=== PATIENT | female | born 1945 | race Caucasian/White ===

== ENCOUNTER → 2022-05-03 | Outpatient (CLI) | payer MEDICARE, SELFPAY | END | disposition home or self-care (01) | PROVIDERS: PCP Nurse Practitioner Family; Referring Provider Nurse Practitioner Family; Visit Provider Nurse Practitioner Family | DX: N39.0 Urinary tract infection, site not specified (principal) | CPT/HCPCS: 87077; 87086; 87088; 87186 ==

== ENCOUNTER 2023-12-17 21:32 | Emergency (ER) | payer MEDICARE, SELFPAY ==
[2023-12-17 21:33] VITALS: BP 182/91; PULSE 65; RESP 16; TEMP 36.4; O2SAT 97; BMI 22.6
--- NOTE | 2023-12-17 21:57 | EX.ED.UPPERE ---
HPI History of Present Illness HPI Narrative: Patient presents with left wrist injury that occurred today. Patient states that she was at a soccer game when the ball came towards her. Patient states she put her hand up to block the ball. Patient states the ball hit her in the wrist and hand area. Patient noted increased swelling since the injury. Patient describes her pain as dull and sore. Patient states it is worse with certain movements. Patient states it is better with rest. Patient denies any paresthesias or weakness. Patient denies any other injuries. Chief Complaint: Upper Extremity Injury Informant: patient Occured/Mechanism Mechanism/Context: Yes direct blow Onset/Context/Timing Onset: Today Context: Sudden Onset Timing: Continuous Quality of Pain: Dull Location: Left wrist Worsened by: Certain movements Relieved by: Rest Associated Symptoms Associated Symptoms: Negative for Parasthesia or Weakness PFSH PFSH Medical History no medical history no medical history Allergy/AdvReac Type Severity Reaction Status Date / Time No Known Allergies Allergy Verified 12/17/23 21:33 Surgical History no surgical history no surgical history ROS ROS ED Constitutional Constitutional ED: Denies chills or fever(s) Eyes Eyes: Denies blurry vision or change in vision ENT ENT ED: Denies rhinorrhea or sore throat Cardiovascular Cardiovascular: Denies chest pain or palpitations Respiratory/Chest Respiratory/Chest: Denies cough or dyspnea Gastrointestinal Gastrointestinal: Denies nausea or vomiting Genitourinary Genitourinary ED: Denies dysuria or hematuria Musculoskeletal Musculoskeletal: Denies back pain or neck pain Integumentary Denies abscess or rash Neurologic Neurologic: Denies headache(s) or weakness Allergic/Immunologic Allergic/Immunologic ED: Denies mouth swelling or urticaria EXAM Physical Exam Const Vital Signs: 12/17/23 21:33 Temperature 97.5 F L Temperature Source Temporal Pulse Rate 65 Respiratory Rate 16 Blood Pressure 182/91 H Blood Pressure Mean 121 Pulse Ox 97 Oxygen Delivery Method Room Air Positive well nourished and well developed General Appearance ED: well developed and NAD HEENT Reports moist mucous membranes Neck full ROM and supple Extremity Extremity Narrative: There is tenderness and edema over the left distal radius and left wrist. There is no obvious deformity noted. Range of motion was limited in all motions of the left wrist secondary to pain. There is some tenderness over the anatomic snuffbox. Sensation was intact to light touch in the radial, median, and ulnar areas. Strength is 5/5 in the radial, median, and ulnar areas. There is good radial pulse palpated. Capillary refills less than 2 seconds in all digits. General Extremety ED: Yes edema General Extremity: edema Neuro oriented x3, CN's II-XII intact bilaterally, moves all extremities, no focal motor deficits and no sensory deficits noted Sensorium / Orientation: alert Motor Exam: strength 5/5 throughout Psych mental status grossly normal MDM MDM MDM Narrative Medical decision making narrative: Differential diagnosis include sprain, contusion, and fracture. X-rays of the left wrist will be obtained to assess for fracture. Radiography Diagnostic Testing: X-rays of the left wrist were obtained. There are 4 views. On my independent interpretation, there is a nondisplaced fracture of the distal radius. There is no angulation. There is no fracture of the scaphoid bone. Radiologist also interpreted the x-rays and agrees. Treatment and Re-Evaluation Narrative: Patient was advised of her findings. Patient was placed in a well-padded custom made short arm AP splint using 3 inch Ortho-Glass. Patient tolerated the procedure well. Neurovascular exam was intact before and after the splint placement. Patient was instructed to ice and elevate the left wrist. Patient was instructed to follow-up with her primary care physician in 5 to 7 days. Patient was also given a referral for orthopedics. Patient understood and was agreeable with the plan. All questions were answered. Discharge Plan Triage Chief Complaint: Upper Extremity Injury ED Provider: Kt Burnham Dx/Rx/DC Orders Clinical Impression: Distal radius fracture, left, Elevated blood pressure reading without diagnosis of hypertension Instructions: ED Fracture, Upper Extremity Primary Care Provider: Elva Dumont Referrals: Elva Dumont MD [Primary Care Provider] - 5-7 Days Salinas Mensah DO [Med Staff - Active Staff] - 3-5 Days Estrada Uribe MD [Med Staff - Active Staff] - 3-5 Days Print Language: E[place] Disposition Disposition: Home, Self Care
--- NOTE | 2023-12-17 22:27 | RAD_ITS ---
STUDY: X-RAY - LEFT WRIST REASON FOR EXAM: Female, 78 years old. injury/pain TECHNIQUE: 4 view(s) of the wrist were obtained. COMPARISON: None. FINDINGS: There is nondisplaced fracture through the distal radial metaphysis, possibly with extension into the articular surface. No significant angulation. No dislocations. Severe diffuse demineralization. Normal radiocarpal articulation. Normal distal radioulnar articulation. Normal carpal bones. Normal carpal articulations. Normal carpometacarpal articulation of the thumb. Normal second through fifth carpometacarpal articulations. Normal visualized metacarpal bones. Diffuse soft tissue swelling. RAD/Wrist min 3 Views IMPRESSION: Nondisplaced nonangulated fracture through the distal radial metaphysis. Electronically Signed: Ray Norwood MD at 22:57 EDT ,
[2023-12-17 23:46] VITALS: BP 172/70; PULSE 67; RESP 18; TEMP 36.4; O2SAT 98
== END 2023-12-17 23:53 | disposition home or self-care (01) ==
PROVIDERS: Emergency Provider Emergency Medicine; PCP Family Medicine; Visit Provider Emergency Medicine
DX: S52.502A Unspecified fracture of the lower end of left radius, initial encounter for closed fracture (principal); R03.0 Elevated blood-pressure reading, without diagnosis of hypertension; W21.02XA Struck by soccer ball, initial encounter; Y93.66 Activity, soccer; Y92.89 Other specified places as the place of occurrence of the external cause
CPT/HCPCS: 29125; 73110; 99282

== ENCOUNTER → 2024-09-21 | Outpatient (CLI) | payer MEDICARE, SELFPAY ==
[2024-09-21 12:24] LABS: Absolute Lymphocyte Count 0.99 X10^3/uL (0.83-4.51); Absolute Neutrophil Count 2.3 X10^3/uL (2.0-7.7); Basophil# 0.03 X10^3/uL; Basophil% 0.8 % (0-1); Eosinophil# 0.23 X10^3/uL; Eosinophils% 5.8 % (0-5); Hemoglobin 12.8 g/dL (12.0-15.0); Lymphocyte # 0.99 X10^3/ul (0.83-4.51); Mean Corpuscular Hgb 30.4 pg (27.0-32.0); Monocyte# 0.43 X10^3/uL; Monocyte% 10.9 % (0-10); NRBC Flagged by Analyzer 0 % (0-5); Neutrophil # 2.26 X10^3/uL (2.7-7.7); Platelet Count 290 K/mm3 (150-450); RBC Distribution Width CV 14.1 % (11.6-14.6); RBC Distribution Width SD 49.1 fl (35.1-43.9); Red Blood Count 4.21 M/mm3 (4.2-5.4)
--- OUTSIDE RECORDS SUMMARY | 2024-09-21 21:21 | XMS RPT_ITS | CCD ---
Author Organization [facility] Care Team Providers Care General Practice Name Role Phone ELVA AUSTIN Attending Unavailable ELVA AUSTIN Primary Care Unavailable ELVA AUSTIN Admitting Unavailable Kt Burnham Attending Unavailable Tim, Elva Primary Care Unavailable Tim, Elva Referring Unavailable Tu Rodriguez Attending Unavailable Tim, Chalon Primary Care Unavailable Ramy Alexander Attending Unavailable Tim, Chalon Primary Care Unavailable Tim, Magenon Referring Unavailable Tu Rodriguez Attending Unavailable Tim, Chalon Primary Care Unavailable Tim, Chalon Primary Care Unavailable Catherine, Ramy Attending Unavailable Tim, Magenon Referring Unavailable Tim, Chalon Primary Care Unavailable Mollsondra, Tu Attending Unavailable Problems Problem Classification Problem Date Documented Da te Episodic/Chronic Fracture of upper limb (1 source) Unspecified fracture of the lower end of left radius, initial encounter for closed fracture; Translations: [Unspecified fracture of the lower end of left radius, initial encounter for closed fracture] Onset: 01-27-2024 Episodic Results Test Name Value Interpretation Reference Range Facil ity Orthopedic Visit Reporton Orthopedic Visit Report [facility] [address] [place] [address] OFFICE VISIT Date of Service: 03/30/24 MR#: [id number] Acct: [id number] Name: ESPERANZA BURTON Rep #: [id number] : 1945 Provider: Dr. Tu marin MD Age/Sex: 78/F Location: [facility] Status: Signed Intake Vital Signs 12/17/23 21:33 Height 5 ft 8 in Weight: 149 lb BMI 22.6 BP 182/91 H Respiration 16 Pulse 65 Temp 97.5 F L Temp Source Temporal Pulse Oximetry (%) 97 Intake Visit Reasons: LEFT WRIST Is patient in pain?: No Allergies No Known Allergies Allergy (Verified 03/30/24 07:57) Medications ???Medication ???Instructions ???Recorded ???Confirmed ???Type aspirin 81 mg capsule 81 mg PO QDAY 12/23/23 03/30/24 History multivitamin 1 tab PO QAM 12/23/23 03/30/24 History Have you fallen in the past year?: Yes PFSH Social History household members: spouse Smoking Status: Never smoker alcohol intake: never HPI LEFT WRIST Details: This documentation accurately reflects the service provided and the decisions made by me, Dr. Tu Rodriguez MD 03/30/24 0748. Part of today???s visit was documented by [ ], acting as scribe. ESPERANZA BURTON is a 78 year old F here today for 3 months FU L DRF non op mgt. well. about 90 percent there. some mild stiffness. was building a porch recently. Coding Level of Care Code Off vis,est,level 3 Diagnoses Distal radius fracture, left S52.502A Assessment and Plan Assessment and Plan (1) Distal radius fracture, left: Status: Inactive Plan: ESPERANZA BURTON is a 78 year old F here today for 3 months FU L DRF non op mgt. Doing well. Keep going with stretching. AAT and FU PRN. Clinical Quality Measures Falls Risk Screening/Assistive Devices Have you fallen in the past year?: Yes Ortho Exam General General: Yes no acute distress Neurologic: Yes alert and Yes oriented x3 Psychologic: Yes reasonable and appropriate Right Wrist/Hand Skin/Wound: No Ecchymosis Left Wrist/Hand Skin/Wound: Yes CDI, No Ecchymosis, Yes nail intact, Yes capillary refill normal and No erythema Left Wrist: No TTP Fracture site Motor: EPL: 5, FDP-2: 5, 1st Dorsal Interosseous: 5 and APB: 5 Sensation: Radial: I, Ulnar: I and Median: I WRIST: ext 35, flex 20. full sup/pron. no pain at wrist. good radial pulse 03/30/24 0802 Date Tu Rodriguez MD Cosign Signature: Date (if applicable) CC: Normal [facility] Orthopedic Visit Reporton Orthopedic Visit Report [facility] [address] [place] [address] [address] [place] [address] OFFICE VISIT Date of Service: 01/27/24 MR#: [id number] Acct: [id number] Name: ESPERANZA BURTON Rep #: [id number] : 1945 Provider: Dr. Tu marin MD Age/Sex: 78/F Location: [facility] Status: Signed Intake Vital Signs 12/17/23 21:33 Height 5 ft 8 in Weight: 149 lb BMI 22.6 BP 182/91 H Respiration 16 Pulse 65 Temp 97.5 F L Temp Source Temporal Pulse Oximetry (%) 97 Intake Visit Reasons: LEFT WRIST Accompanied by: Is patient in pain?: No Allergies No Known Allergies Allergy (Verified 01/27/24 08:45) Medications ???Medication ???Instructions ???Recorded ???Confirmed ???Type aspirin 81 mg capsule 81 mg PO QDAY 12/23/23 01/27/24 History multivitamin 1 tab PO QAM 12/23/23 01/27/24 History Have you fallen in the past year?: No PFSH Social History household members: spouse Smoking Status: Never smoker alcohol intake: never HPI LEFT WRIST Details: This documentation accurately reflects the service provided and the decisions made by me, Dr. Tu Rodriguez MD 01/27/24 0843. Part of today???s visit was documented by [ ], acting as scribe. ESPERANZA BURTON is a 78 year old F here today for 6 weeks FU left distal radius fracture, non op mgt. doing well. Some mild soreness and stiffness. Supplemental Info X-rays 3 views of the left wrist obtained show good fracture healing and alignment. Coding Level of Care Code Off vis,est,level 3 Diagnoses Distal radius fracture, left S52.502A Assessment and Plan Assessment and Plan (1) Distal radius fracture, left: Status: Inactive Plan: ESPERANZA BURTON is a 78 year old F here today for 6 weeks FU left distal radius fracture, non op mgt. patient doing well discontinue the cast today. Recommend home-based exercises gave a handout for that. The patient declined physical therapy. Would like to see the patient back in 2 months time to check the range of motion they understood no further questions or concerns. Orders: Orders Wrist min 3 Views Today S52.502A - Unspecified fracture of the lower end of left radius, initial encounter for closed fracture Clinical Quality Measures Falls Risk Screening/Assistive Devices Have you fallen in the past year?: No Ortho Exam General General: Yes no acute distress Neurologic: Yes alert and Yes oriented x3 Psychologic: Yes reasonable and appropriate Right Wrist/Hand Skin/Wound: No Ecchymosis Left Wrist/Hand Skin/Wound: Yes CDI, No Ecchymosis, Yes nail intact, Yes capillary refill normal and No erythema Left Wrist: Yes TTP Fracture site Motor: EPL: 4, FDP-2: 4, 1st Dorsal Interosseous: 4 and APB: 4 Sensation: Radial: I, Ulnar: I and Median: I WRIST: ext 20, flex 15. full sup/pron. mild pain at wrist. good radial pulse 01/27/24 0922 Date [facility]: Date (if applicable) CC: Normal [facility] Wrist min 3 Viewson 01-27-20 24 Wrist min 3 Views [facility] [address] [place] [address] Wrist min 3 Views MR#: [id number] Acct: [id number] Name: ESPERANZA BURTON Rep #: [id number] : 1945 F 78 From: Tal Carlos MD PCP: Dr. Elva Austin MD Status: DEP AMB Study: Wrist min 3 Views Date of Exam: 01/27/24 Exam# [id number] Ordering Dr: uT Rodriguez MD [id number] STUDY: X-RAY - LEFT WRIST REASON FOR EXAM: Female, 78 years old. Known fracture TECHNIQUE: 3 view(s) of the wrist were obtained. COMPARISON: 12/23/2023 FINDINGS: The bones are demineralized. There is near complete healing of a previously described fracture in the distal left radius as there are still subtle fracture lucency noted on the oblique and lateral films. Alignment at the fracture site is anatomic. Follow-up recommended to assure complete osseous union. No acute fracture or suspicious osseous lesion. 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 RAD/Wrist min 3 Views IMPRESSION: Near complete healing of a previously noted fracture in the distal metaphysis of the radius. Alignment is anatomic there is still subtle evidence of cortical irregularity at the fracture lucency on the oblique and lateral images. No new acute fracture Stable degenerative changes Electronically Signed: Demetrius Carlos MD at 14:38 EDT , CC: Dr. Elva Austin MD; Dr. Tu Rodriguez MD After School Program Director: Signed Normal [facility] Orthopedic Visit Reporton Orthopedic Visit Report [facility] [address] [place], [place] [id number] OFFICE VISIT Date of Service: 12/23/23 MR#: [id number] Acct: [id number] Name: ESPERANZA BURTON Rep #: [id number] : 1945 Provider: Dr. Tu marin MD Age/Sex: 78/F Location: [facility] Status: Signed Intake Vital Signs 12/17/23 21:33 Height 5 ft 8 in Intake Visit Reasons: wrist pain Accompanied by: Is patient in pain?: No Allergies No Known Allergies Allergy (Verified 12/23/23 08:25) Medications ???Medication ???Instructions ???Recorded ???Confirmed ???Type aspirin 81 mg capsule 81 mg PO QDAY 12/23/23 12/23/23 History multivitamin 1 tab PO QAM 12/23/23 12/23/23 History Have you fallen in the past year?: No PFSH Social History (Updated 12/23/23 @ 08:29 by Aliza Dumont) household members: spouse Smoking Status: Never smoker alcohol intake: never HPI wrist pain Details: This documentation accurately reflects the service provided and the decisions made by me, Dr. Tu Rodriguez MD 12/23/23 0805. Part of today???s visit was documented by [ ], acting as scribe. ESPERANZA BURTON is a 78 year old F here today for left distal radius fracture. 1 week since the injury. Patient was hit by a soccer ball. RHD. per ED Patient presents with left wrist injury that occurred today. Patient states that she was at a soccer game when the ball came towards her. Patient states she put her hand up to block the ball. Patient states the ball hit her in the wrist and hand area. Patient noted increased swelling since the injury. Patient describes her pain as dull and sore. Patient states it is worse with certain movements. Patient states it is better with rest. Patient denies any paresthesias or weakness. Patient denies any other injuries. Office Procedures Cast Applied Cast Cast placed: Short arm cast applied to Closed treatment of... distal radial fx/epi sep,w/w/o fx ulnar sty;w/o manip 47092: Yes [place] Material: No Supplemental Info [facility] Imaging Services [address] [place] [address] Wrist min 3 Views MR#: [id number] Acct: [id number] Name: ESPERANZA BURTON Rep #: [id number] : 1945 F 78 From: Ray Norwood MD PCP: Dr. Elva Austin MD Status: REG ER Study: Wrist min 3 Views Date of Exam: 12/17/23 Exam# [id number] Ordering Dr: Kt Burnham DO [id number] STUDY: X-RAY - LEFT WRIST REASON FOR EXAM: Female, 78 years old. injury/pain TECHNIQUE: 4 view(s) of the wrist were obtained. COMPARISON: None. FINDINGS: There is nondisplaced fracture through the distal radial metaphysis, possibly with extension into the articular surface. No significant angulation. No dislocations. Severe diffuse demineralization. Normal radiocarpal articulation. Normal distal radioulnar articulation. Normal carpal bones. Normal carpal articulations. Normal carpometacarpal articulation of the thumb. Normal second through fifth carpometacarpal articulations. Normal visualized metacarpal bones. Diffuse soft tissue swelling. RAD/Wrist min 3 Views IMPRESSION: Nondisplaced nonangulated fracture through the distal radial metaphysis. Electronically Signed: Ray Norwood MD at 22:57 EDT , I independently reviewed the imaging. Concur with radiologist report. no change to alignment post casting xrays Coding Level of Care Code Off vis,new,level 3 Diagnoses Distal radius fracture, left S52.502A CPT Codes Closed treatment of... - distal radial fx/epi sep,w/w/o fx ulnar sty;w/o manip 59007: Yes ([id number]) Assessment and Plan Assessment and Plan (1) Distal radius fracture, left: Status: Acute Plan: ESPERANZA BURTON is a 78 year old F here today for left distal radius fracture. This is nondisplaced and a 78-year-old female. I recommend nonoperative treatment although the other option would be open reduction internal fixation. I recommend cast immobilization for 6 weeks total since the injury. Recommend to follow-up in 5 weeks time for repeat radiographs and clinical exam and to discontinue the cast they understood no further questions or concerns. Warned about stiffness, displacement or other risks. Orders: Orders Wrist min 3 Views Today S52.502A - Unspecified fracture of the lower end of left radius, initial encounter for closed fracture Casting Order Today S52.502A - Unspecified fracture of t (more content not included)... Normal [facility] Wrist min 3 Viewson 12-23-19 Wrist min 3 Views [facility] [address] [place] [address] Wrist min 3 Views MR#: [id number] Acct: [id number] Name: ESPERANZA BURTON Rep #: [id number] : 1945 F 78 From: Artie Aj MD PCP: Dr. Elva Austin MD Status: DEP [facility] Study: Wrist min 3 Views Date of Exam: 12/23/23 Exam# [id number] Ordering Dr: Tu Rodriguez MD [id number] INDICATION: FU EXAMINATION/TECHNIQUE : X-RAY - LEFT XR Wrist Min 3 Views COMPARISON: Left wrist radiographs 12/17/2023. __ FINDINGS: 3 views of the left wrist. Suboptimal fine osseous detail secondary to overlying splint material. However, stable appearing nondisplaced transverse fracture of the distal radius is again noted. No other acute osseous abnormality. RAD/Wrist min 3 Views IMPRESSION: Suboptimal fine osseous detail secondary to overlying splint material, however, stable appearing nondisplaced transverse fracture of the left distal radius is again noted. Electronically Signed: Artie Aj MD at 0:04 EDT , CC: Dr. Elva Austin MD; Dr. Tu Rodriguez MD After School Program Director: Signed Normal [facility] Emergency Department Summary on 12-17-2023 Emergency Department Summary [facility] Medical Records Department [address] [place] [address] Emergency Department Summary 12/17/23 MR#: [id number] Acct: [id number] Name: ESPERANZA BURTON Rep #: [id number] : 1945 78 From: Kt Burnham DO PCP: Dr. Elva Austin MD Status:DEP ER Location: ED HPI History of Present Illness HPI Narrative: Patient presents with left wrist injury that occurred today. Patient states that she was at a soccer game when the ball came towards her. Patient states she put her hand up to block the ball. Patient states the ball hit her in the wrist and hand area. Patient noted increased swelling since the injury. Patient describes her pain as dull and sore. Patient states it is worse with certain movements. Patient states it is better with rest. Patient denies any paresthesias or weakness. Patient denies any other injuries. Chief Complaint: Upper Extremity Injury Informant: patient Occured/Mechanism Mechanism/Context: Yes direct blow Onset/Context/Timing Onset: Today Context: Sudden Onset Timing: Continuous Quality of Pain: Dull Location: Left wrist Worsened by: Certain movements Relieved by: Rest Associated Symptoms Associated Symptoms: Negative for Parasthesia or Weakness PFSH PFSH Medical History no medical history no medical history Allergy/AdvReac Type Severity Reaction Status Date / Time No Known Allergies Allergy Verified 12/17/23 21:33 Surgical History no surgical history no surgical history [facility] ED Constitutional Constitutional ED: Denies chills or fever(s) Eyes Eyes: Denies blurry vision or change in vision ENT ENT ED: Denies rhinorrhea or sore throat Cardiovascular Cardiovascular: Denies chest pain or palpitations Respiratory/Chest Respiratory/Chest: Denies cough or dyspnea Gastrointestinal Gastrointestinal: Denies nausea or vomiting Genitourinary Genitourinary ED: Denies dysuria or hematuria Musculoskeletal Musculoskeletal: Denies back pain or neck pain Integumentary Denies abscess or rash Neurologic Neurologic: Denies headache(s) or weakness Allergic/Immunologic Allergic/Immunologic ED: Denies mouth swelling or urticaria EXAM Physical Exam Const Vital Signs: 12/17/23 21:33 Temperature 97.5 F L Temperature Source Temporal Pulse Rate 65 Respiratory Rate 16 Blood Pressure 182/91 H Blood Pressure Mean 121 Pulse Ox 97 Oxygen Delivery Method Room Air Positive well nourished and well developed General Appearance ED: well developed and NAD HEENT Reports moist mucous membranes Neck full ROM and supple Extremity Extremity Narrative: There is tenderness and edema over the left distal radius and left wrist. There is no obvious deformity noted. Range of motion was limited in all motions of the left wrist secondary to pain. There is some tenderness over the anatomic snuffbox. Sensation was intact to light touch in the radial, median, and ulnar areas. Strength is 5/5 in the radial, median, and ulnar areas. There is good radial pulse palpated. Capillary refills less than 2 seconds in all digits. General Extremety ED: Yes edema General Extremity: edema Neuro oriented x3, CN's II-XII intact bilaterally, moves all extremities, no focal motor deficits and no sensory deficits noted Sensorium / Orientation: alert Motor Exam: strength 5/5 throughout Psych mental status grossly normal MDM MDM MDM Narrative Medical decision making narrative: Differential diagnosis include sprain, contusion, and fracture. X-rays of the left wrist will be obtained to assess for fracture. Radiography Diagnostic Testing: X-rays of the left wrist were obtained. There are 4 views. On my independent interpretation, there is a nondisplaced fracture of the distal radius. There is no angulation. There is no fracture of the scaphoid bone. Radiologist also interpreted the x-rays and agrees. Treatment and Re-Evaluation Narrative: Patient was advised of her findings. Patient was placed in a well-padded custom made short arm AP splint using 3 inch Ortho-Glass. Patient tolerated the procedure well. Neurovascular exam was intact before and after the splint placement. Patient was instructed to ice and elevate the left wrist. Patient was instructed to follow-up with her primary care physician in 5 to 7 days. Patient was also given a referral for orthopedics. Patient understood and was agreeable with the plan. All questions were answered. Discharge Plan Triage Chief Complaint: Upper Extremity Injury ED Provider: Kt Burnham Dx/Rx/DC Orders Clinical Impression: Distal radius fracture, left, Elevated blood pressure reading without diagnosis of hypertension Instructions: ED Fracture, Upper Extremity Primary Care Provider: Elva Austin Referrals: Elva Austin MD [Primary Car (more content not included)... Normal [facility] Wrist min 3 Viewson 12-17-19 Wrist min 3 Views [facility] Imaging Services [address] [place], [place] [address] Wrist min 3 Views MR#: [id number] Acct: [id number] Name: ESPERANZA BURTON Rep #: [id number] : 1945 F 78 From: Ray ro MD PCP: Dr. Elva Austin MD Status: REG ER Study: Wrist min 3 Views Date of Exam: 12/17/23 Exam# [id number] Ordering Dr: Kt Burnham DO [id number] STUDY: X-RAY - LEFT WRIST REASON FOR EXAM: Female, 78 years old. injury/pain TECHNIQUE: 4 view(s) of the wrist were obtained. COMPARISON: None. FINDINGS: There is nondisplaced fracture through the distal radial metaphysis, possibly with extension into the articular surface. No significant angulation. No dislocations. Severe diffuse demineralization. Normal radiocarpal articulation. Normal distal radioulnar articulation. Normal carpal bones. Normal carpal articulations. Normal carpometacarpal articulation of the thumb. Normal second through fifth carpometacarpal articulations. Normal visualized metacarpal bones. Diffuse soft tissue swelling. RAD/Wrist min 3 Views IMPRESSION: Nondisplaced nonangulated fracture through the distal radial metaphysis. Electronically Signed: Ray Norwood MD at 22:57 EDT , CC: Dr. Elva Austin MD; Dr. Kt Burnham DO After School Program Director: Signed Normal [facility] Culture, urineOrdered By: Er in [facility] on 05-05-2022 Bacteria identified Cx Nom (U) Escherichia coli [facility] Encounters Encounter Date Encounter Type Care Provider Facility Start: 03-30-2024 End: 03-30-2024 ambulatory Elva Austin Facility:[facility] Start: 02-10-[address] [facility] Start: 01-27-2024 End: 01-27-2024 ambulatory Chaltomas Austin Facility:[facility] Start: 12-23-2023 End: 12-23-2023 ambulatory Elva Austin Facility:[facility] Start: 12-17-2023 End: 12-17-2023 Emergency department patient visit Kt Burnham Facility:[facility] Start: 05-03-2022 End: 05-03-2022 ambulatory [facility] Work Phone: Start: 05-03-2022 End: 05-03-2022 Patient encounter procedure [facility], Specimen Procedures Date Procedure Procedure Detail Performing Clinician Bacteria identified in Urine by Culture Urine culture Payers Date Payer Category Payer Private Health Insurance [id number] 2023 Self-pay 1945 Unknown [id number] Medicare [id number] Unknown [facility] [id number] Unknown [id number] Unknown [id number] Unknown [id number] Unknown [id number] Unknown [id number] Unknown [id number] Social History Date Type Detail [facility] Work Phone: Start: 1945 Sex Assigned At Female [facility] Evaluation note Note Date & Type Note Facility Evaluation note No assessment information availa ble [facility] Work Phone: Summary Purpose Family History No Family History Records FoundNo Family History Records Found Advance Directives No Advanced Directives Records FoundNo Advanced Directives Records Found Additional Source Comments Care Teams (unrecognized sec tion and content) Team Status: Active Member Role Status Dates Kalina Aguilar FINANCIAL ADMINISTRATOR, FINANCIAL ADMINISTRATOR-C Primary Care Provider Active Team Status: Inactive Member Role Status Dates Kalina Aguilar FINANCIAL ADMINISTRATOR, FINANCIAL ADMINISTRATOR-C Primary Care Provid er, Attending Provider, Referring Provider Active Goals (unrecognized section and content) Goals may be documented in a n alternate section INFORMATION SOURCE (unrecogn ized section and content) DATE CREATED AUTHOR 02/10/2024 [facility] DATE CREATED AUTHOR 'S NARA MENENDEZ 03/30/2024 [facility] FOR RECORDS PERTAINING TO PATIENTS WHO ARE OR HAVE BEEN ENROLLED IN A CHEMICAL DEPENDENCY/SUBSTANCEABUSE PROGRAM, SOME INFORMATION MAY BE OMITTED. This clinical summary was aggregated from multiple sources. Caution should be exercised in using it in the provision of clinical care. This summary normalizes information from multiple sources, and as a consequence, information in this document may materially change the coding, format and clinical context of patient data. In addition, data may be omitted in some cases. CLINICAL DECISIONS SHOULD BE BASED ON THE PRIMARY CLINICAL RECORDS. [facility] [employer] [facility]. provides no warranty or guarantee of the accuracy or completeness of information in this document.
[2024-09-22 15:56] LABS: ALB/GLOB Ratio 1.5 RATIO (0.9-2.4); AST(SGOT) 17 U/L (<=31); Alanine Aminotransfer ALT/SGPT 11 U/L (<=34); Albumin, Serum 4.2 g/dL (3.4-4.8); Alkaline Phosphatase 88 U/L (35-104); Anion Gap 9 (5-15); BUN 17 mg/dL (4-19); BUN/Creat Ratio 22.9 RATIO (10-20); Calcium,Total 9.6 mg/dL (7.6-11.0); Carbon Dioxide 26.4 mmol/L (21.0-32.0); Chloride 106 mmol/L (98-108); Cholesterol 221 mg/dL (<=200); Creatinine, Serum 0.76 mg/dL (0.70-1.20); EST Glomerular Filtration Rate 80 (>60); Globulin 2.7 g/dL (2.2-4.2); Glucose 88 mg/dL (70-99); High Density Lipoprotein 52 mg/dL; Low Density Lipoprotein Calc. 153 mg/dL; Potassium 4.4 mmol/L (3.3-5.1); Sodium Level 141 mmol/L (133-145); Total Bilirubin 0.39 mg/dL (0.00-1.30); Triglycerides 81 mg/dL; Very Low Density Lipoprotein 16 mg/dL (5-40); cholesterol:hdl ratio screen 4.24
== END | disposition home or self-care (01) ==
LOC: MFPLAB 09:25
PROVIDERS: PCP Family Medicine; Referring Provider Family Medicine; Visit Provider Family Medicine
DX: Z13.1 Encounter for screening for diabetes mellitus (principal); R53.83 Other fatigue; Z13.220 Encounter for screening for lipoid disorders
CPT/HCPCS: 36415; 80053; 80061; 84443; 85025